=== PATIENT | male | born 1990 | race Caucasian/White ===

== ENCOUNTER 2023-02-24 10:59 | Outpatient (CLI) | payer OTHER ==
--- NOTE | 2023-02-24 12:28 | XRAY Report ---
PROCEDURE: Hand 3 View LT INDICATIONS: CONTUSION OF LEFT HAND,INITIAL ENCOUNTER TECHNIQUE: 3 views of the hand(s) acquired. COMPARISON: None. FINDINGS: Bones: No displaced fracture or dislocation. Soft tissues: No suspicious soft tissue calcifications. IMPRESSION: No acute radiographic abnormality. If there is high concern for occult injury, consider repeat radiog rosie or cross-sectional imaging. Reviewed by: Brien La MD on 02/24/2023 12:27 PM PDT Approved by: Brien La MD on 02/24/2023 12:27 PM PDT Station ID: [id number]
== END 2023-02-24 11:00 | disposition home or self-care (01) ==
LOC: DI 10:59
PROVIDERS: ATTEND Physician Assistant Medical
DX: S60.222A Contusion of left hand, initial encounter (principal)